=== PATIENT | female | born 1995 | race Caucasian/White ===

== ENCOUNTER 2016-09-17 06:09 | Inpatient (IN) ==
[2016-09-17] MEDS ORDERED: PEPCID PO ONE (06:11)
[2016-09-17] MEDS ORDERED: TYLENOL PO PRN (06:11)
[2016-09-17] MEDS ORDERED: ZOFRAN IV PRN (06:11)
[2016-09-17] MEDS ORDERED: STADOL IV PRN (06:11)
[2016-09-17] MEDS ORDERED: AMPICILLIN 2 GM/NS 100 ML IV ONE (06:11)
[2016-09-17] MEDS ORDERED: KEFZOL 1 GM/D5W 50 ML IV PRN (06:11)
[2016-09-17] MEDS ORDERED: PEPCID PO PRN (06:11)
[2016-09-17] MEDS ORDERED: REGLAN PO ONE (06:11)
[2016-09-17] MEDS ORDERED: PEPCID IV PRN (06:11)
[2016-09-17] MEDS ORDERED: LR 500 ML IV ONE (06:11)
[2016-09-17] MEDS ORDERED: PITOCIN 30 UNITS/LR 500 ML IV SCH (06:15)
[2016-09-17] MEDS ORDERED: SODIUM CHLORIDE 0.9% INJ SCH (06:15)
[2016-09-17] MEDS: LR 1,000 ML IV SCH ×2 (06:30→09:10)
[2016-09-17 06:46] LABS: MANUAL DIFF NEEDED? NO; URINE SOURCE VOIDED
[2016-09-17 06:48] LABS: BASO% 0.3 % (0.0-0.8); EOS# 0.22 X1000 (0.0-0.7); EOS% 2.2 % (0.0-10.0); HEMATOCRIT 34.4 % (37.0-47.0); HEMOGLOBIN 11.4 g/dL (12.0-16.0); IMM GRAN# 0.02 X1000 (0.0-0.04); IMM GRAN% 0.2 % (0.0-0.5); LYMPH# 2.71 X1000 (1.2-3.4); LYMPH% 27.6 % (20.5-51.1); MCH 27.1 PG (27-31); MCHC 33.1 g/dL (33-37); MCV 81.9 FL (81-99); MONO# 0.83 X1000 (0.11-0.59); MONO% 8.4 % (1.7-9.3); MPV 11.4 FL (7.4-10.4); NEUT% 61.3 % (42.2-75.2); PLT 229 X1000 (130-400)
[2016-09-17 06:49] LABS: BILIRUBIN URINE NEGATIVE (NEGATIVE); BLOOD URINE 1+ (NEGATIVE); CLARITY SL. CLOUDY (CLEAR); COLOR YELLOW; GLUCOSE URINE NEGATIVE (NEGATIVE); LEUKOCYTES URINE 2+ (NEGATIVE); NITRITE URINE NEGATIVE (NEGATIVE); PROTEIN URINE 1+(30 mg/dL) mg/dL (NEGATIVE); SP GRAVITY URINE 1.015; UROBILINOGEN URINE NORMAL
[2016-09-17] MEDS ORDERED: XYLOCAINE-MPF 1% 5 ML ONE (09:01)
[2016-09-17] MEDS ORDERED: FENTANYL-BUPIV-NS 2 MCG-0.1% 200 ML ONE (09:01)
[2016-09-17] MEDS ORDERED: FENTANYL-BUPIV-NS 2 MCG-0.1% 200 ML EPIDURAL PRN (09:16)
[2016-09-17] MEDS ORDERED: XYLOCAINE-MPF 1% INJ ONE (09:30)
[2016-09-17] MEDS ORDERED: AMPICILLIN 1 GM/NS 50 ML IV SCH (10:12)
[2016-09-17] MEDS ORDERED: MINERAL OIL ONE (11:54)
[2016-09-17] MEDS ORDERED: M-M-R II VACCINE SUBQ ONE (12:38)
[2016-09-17] MEDS ORDERED: HYDROXYZINE IM PRN (12:38)
[2016-09-17] MEDS ORDERED: BENADRYL IV PRN (12:38)
[2016-09-17] MEDS ORDERED: PITOCIN IM PRN (12:38)
[2016-09-17] MEDS ORDERED: PITOCIN 30 UNITS/LR 500 ML IV ONE (12:38)
[2016-09-17] MEDS ORDERED: XYLOCAINE-MPF 1% INJ PRN (12:38)
[2016-09-17] MEDS ORDERED: NORCO-5 PO PRN (12:38)
[2016-09-17] MEDS ORDERED: HYDROXYZINE PO PRN (12:38)
[2016-09-17] MEDS ORDERED: CYTOTEC PO PRN (12:38)
[2016-09-17] MEDS ORDERED: BENADRYL PO PRN (12:38)
[2016-09-17] MEDS ORDERED: PITOCIN 20 UNITS/LR 1,000 ML IV SCH (12:38)
[2016-09-17] MEDS ORDERED: MINERAL OIL MISC PRN (12:38)
[2016-09-17] MEDS ORDERED: AMBIEN PO PRN (12:38)
[2016-09-17] MEDS ORDERED: BOOSTRIX VACCINE IM ONE (12:38)
[2016-09-17] MEDS ORDERED: PERI MEDS (DERMOPLAST/NUPERCAINAL/TUCKS) MISC PRN (12:38)
[2016-09-17] MEDS ORDERED: NORCO-10 PO PRN (12:38)
--- NOTE | 2016-09-17 13:41 | OPERATIVE NOTE ---
PROCEDURE DATE: 09/17/2016 PREDELIVERY DIAGNOSES: 1. Intrauterine at term. 2. 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 POST DELIVERY DIAGNOSES: 1. Occiput posterior vacuum assisted vaginal delivery. 2. Nuchal cord x1. SURGEON: Haresh Leo MD ANESTHESIA: Epidural with . FINDINGS: Viable female infant, occiput posterior, delivered with the use of a vacuum extractor the kiwi 550 mmHg. No Popoff, 2 pulls. No lacerations or tears. Placenta and cord normal. Counts correct. SUMMARY: Ms Wilhelm is a 21-year-old 2, para 1, at term who was admitted for labor induction. She came in last night, received antibiotics and this morning was started on Pitocin. She was artificially ruptured. Received epidural anesthesia and reached complete cervical dilatation and pushed for 30 minutes. [place] occiput posterior, so discussed vacuum. Patient agreed, vacuum applied. With 2 pushes the delivered occiput posterior. Once head delivered, nuchal cord x1 was reduced without difficulty and shoulders and rest of the body delivered easily. The infant placed on mother's abdomen. Cord doubly clamped and cut. Care of taken over by nursery personnel. Cord blood was obtained. It was a 3-vessel cord. Gentle traction resulted in delivery of the placenta after approximately 3 minutes, it was noted to be intact. It was inspected and discarded. Vaginal sweep did not reveal any clots or foreign material. There were no lacerations or tears. Counts were correct. Estimated blood loss 100 mL. Expect routine .
[2016-09-17] MEDS: PERICOLACE PO SCH (20:08)
[2016-09-17] MEDS: MOTRIN PO PRN (20:08)
[2016-09-18 06:09] LABS: MANUAL DIFF NEEDED? NO
[2016-09-18 06:23] LABS: BASO% 0.3 % (0.0-0.8); EOS# 0.23 X1000 (0.0-0.7); EOS% 2.1 % (0.0-10.0); HEMATOCRIT 31.7 % (37.0-47.0); HEMOGLOBIN 9.9 g/dL (12.0-16.0); IMM GRAN# 0.02 X1000 (0.0-0.04); IMM GRAN% 0.2 % (0.0-0.5); LYMPH# 2.86 X1000 (1.2-3.4); LYMPH% 26.4 % (20.5-51.1); MCH 25.9 PG (27-31); MCHC 31.2 g/dL (33-37); MONO# 0.89 X1000 (0.11-0.59); MONO% 8.2 % (1.7-9.3); NEUT% 62.8 % (42.2-75.2); PLT 189 X1000 (130-400); RBC 3.82 XMIL (4.2-5.4)
[2016-09-18] MEDS: MOTRIN PO PRN ×2 (09:32→18:27)
[2016-09-18] MEDS: PRECARE PO SCH (09:32)
[2016-09-18] MEDS: PERCOCET-5 PO PRN ×2 (14:13→19:43)
[2016-09-18] MEDS: PERICOLACE PO SCH ×2 (19:43→20:00)
[2016-09-19 08:46] VITALS: BP 113/55
[2016-09-19] MEDS: PERCOCET-5 PO PRN (08:49)
[2016-09-19] MEDS: PRECARE PO SCH (08:49)
== END 2016-09-19 11:20 | disposition home or self-care (01) | DRG 775 ==
LOC: P.LD 06:09 → P.WC 15:59
PROVIDERS: ADMIT Obstetrics & Gynecology; ATTEND Obstetrics & Gynecology
PROC: 10D07Z6 Extraction of Products of Conception, Vacuum, Via Natural or Artificial Opening (ICD-10-PCS; principal; 2016-09-17)
PROC: 10907ZC Drainage of Amniotic Fluid, Therapeutic from Products of Conception, Via Natural or Artificial Opening (ICD-10-PCS; 2016-09-17)
PROC: 3E033VJ Introduction of Other Hormone into Peripheral Vein, Percutaneous Approach (ICD-10-PCS; 2016-09-17)
DX: O69.1XX0 Labor and delivery complicated by cord around neck, with compression, not applicable or unspecified (principal); O99.824 Streptococcus B carrier state complicating childbirth; Z37.0 Single live birth; Z3A.39 39 weeks gestation of pregnancy
CPT/HCPCS: 59025; 81003; 85025; 86592; J0290; J2405; J2590; J7120; S0028